=== PATIENT | female | born 1985 ===

== ENCOUNTER 2025-01-01 10:57 | Outpatient (CLI) | payer OTHER | END 2025-01-01 10:58 | disposition home or self-care (01) | LOC: PRENATAL 10:57 | PROVIDERS: ATTEND Obstetrics & Gynecology Maternal & Fetal Medicine | DX: O44.00 Complete placenta previa NOS or without hemorrhage, unspecified trimester (principal); O10.019 Pre-existing essential hypertension complicating pregnancy, unspecified trimester; O09.529 Supervision of elderly multigravida, unspecified trimester; Z3A.19 19 weeks gestation of pregnancy ==

== ENCOUNTER 2025-02-26 13:44 | Outpatient (CLI) | payer OTHER | END 2025-02-26 13:45 | disposition home or self-care (01) | LOC: PRENATAL 13:44 | PROVIDERS: ATTEND Obstetrics & Gynecology Maternal & Fetal Medicine | DX: O26.849 Uterine size-date discrepancy, unspecified trimester (principal); O44.00 Complete placenta previa NOS or without hemorrhage, unspecified trimester; O10.019 Pre-existing essential hypertension complicating pregnancy, unspecified trimester; O09.529 Supervision of elderly multigravida, unspecified trimester; Z3A.27 27 weeks gestation of pregnancy ==

== ENCOUNTER 2025-03-14 11:48 | Outpatient (CLI) | payer OTHER | END 2025-03-14 11:49 | disposition home or self-care (01) | LOC: PRENATAL 11:48 | PROVIDERS: ATTEND Obstetrics & Gynecology Maternal & Fetal Medicine | DX: O99.210 Obesity complicating pregnancy, unspecified trimester (principal); O10.019 Pre-existing essential hypertension complicating pregnancy, unspecified trimester; O09.529 Supervision of elderly multigravida, unspecified trimester; O76 Abnormality in fetal heart rate and rhythm complicating labor and delivery; Z3A.30 30 weeks gestation of pregnancy; O35.00X0 Maternal care for (suspected) central nervous system malformation or damage in fetus, unspecified, not applicable or unspecified ==

== ENCOUNTER 2025-03-28 14:18 | Outpatient (CLI) | payer OTHER | END 2025-03-28 14:19 | disposition home or self-care (01) | LOC: PRENATAL 14:18 | PROVIDERS: ATTEND Obstetrics & Gynecology Maternal & Fetal Medicine | DX: O26.849 Uterine size-date discrepancy, unspecified trimester (principal); O36.8130 Decreased fetal movements, third trimester, not applicable or unspecified; O10.019 Pre-existing essential hypertension complicating pregnancy, unspecified trimester; O09.529 Supervision of elderly multigravida, unspecified trimester; O24.419 Gestational diabetes mellitus in pregnancy, unspecified control; Z3A.32 32 weeks gestation of pregnancy ==

== ENCOUNTER → 2025-04-23 13:24 | Outpatient (CLI) | payer OTHER | END | disposition home or self-care (01) | LOC: PRENATAL 13:24 | PROVIDERS: ATTEND Obstetrics & Gynecology Maternal & Fetal Medicine | DX: O26.849 Uterine size-date discrepancy, unspecified trimester (principal); O36.8130 Decreased fetal movements, third trimester, not applicable or unspecified; O10.013 Pre-existing essential hypertension complicating pregnancy, third trimester; O09.529 Supervision of elderly multigravida, unspecified trimester; O98.919 Unspecified maternal infectious and parasitic disease complicating pregnancy, unspecified trimester; Z3A.35 35 weeks gestation of pregnancy ==